=== PATIENT | male | born 1940 | race Caucasian/White ===

== ENCOUNTER 2016-11-21 13:12 | Emergency (ER) | payer OTHER ==
[~2016-11-21] VITALS: Ht 180.3 cm; Wt 86.4 kg
[2016-11-21] MEDS ORDERED: NITR0.4D TD (13:25)
[2016-11-21] MEDS ORDERED: LISI2.5T3 PO (13:25)
[2016-11-21] MEDS ORDERED: ASPI81TA85 PO (13:25)
[2016-11-21] MEDS ORDERED: METO1TAB32 PO (13:25)
[2016-11-21] MEDS ORDERED: PLAV1TAB2 PO (13:25)
[2016-11-21] MEDS ORDERED: FLOM5CAP PO (13:25)
[2016-11-21] MEDS ORDERED: LIPI20TA PO (13:25)
[2016-11-21] MEDS ORDERED: ASPI325T28 PO (13:25)
--- NOTE | 2016-11-21 14:07 | REP ---
Clinical: Trauma. Technique: AP, lateral, bilateral oblique views of the right ankle. Findings: There is an oblique minimally displaced fracture involving the distal fibular metaphysis with overlying soft tissue swelling. No other fracture dislocation is appreciated. Impression: Fracture of the distal fibular metaphysis. Signed by El Quinn MD 11/21/2016 01:58 P
[2016-11-21] MEDS ORDERED: TYLE325T5 PO (15:16)
[2016-11-21 15:35] VITALS: BP 148/82
== END 2016-11-21 16:00 | disposition home or self-care (01) ==
LOC: M ED 13:12
DX: S82.491A Other fracture of shaft of right fibula, initial encounter for closed fracture (principal); Z87.891 Personal history of nicotine dependence; W01.198A Fall on same level from slipping, tripping and stumbling with subsequent striking against other object, initial encounter; Y92.89 Other specified places as the place of occurrence of the external cause; Y93.01 Activity, walking, marching and hiking; Y99.9 Unspecified external cause status